=== PATIENT | female | born 1960 | race African-American/Black ===

== ENCOUNTER 2018-10-27 15:20 | Inpatient (IN) | payer MEDICAID, OTHER ==
[~2018-10-27] VITALS: Ht 167.6 cm; Wt 40.8 kg
[2018-10-27 17:50] LABS: EOSINOPHILS % 0.7 % (0.0-5.0); HEMATOCRIT. 47.1 % (36.0-48.0); HEMOGLOBIN. 15.6 g/dL (12.0-16.0); LYMPHOCYTES % 30.5 % (20.0-50.0); MEAN CORPUSCULAR VOLUME 90.9 fL (81.0-99.0); MEAN PLATELET VOLUME 10.8 fl (7.4-10.4); MONOCYTES % 7.5 % (2.0-8.0); NEUTROPHILS % 60.3 % (40.0-76.0); PLATELET 263 x1000/uL (130-400); RED BLOOD CELL COUNT 5.19 mill/uL (4.2-5.4); RED CELL DISTRIBUTION WIDTH 14.8 % (11.6-14.6)
[2018-10-27 17:54] LABS: CHLORIDE 108 mEq/L (98-107)
[2018-10-27] MEDS ORDERED: DEXTROSE 50% WATER 50ML SYRINGE IV ONE (18:56)
[2018-10-27] MEDS ORDERED: ASPIRIN 81MG TABLET PO ONE (19:30)
[2018-10-27] MEDS ORDERED: LEVOFLOXACIN 750MG PREMIX 150 ML IV NR (19:30)
[2018-10-27] MEDS ORDERED: FUROSEMIDE 40MG/4ML VIAL IVP ONE (19:30)
[2018-10-27] MEDS ORDERED: ONDANSETRON HCL 4MG/2ML INJ IV PRN (19:45)
[2018-10-27] MEDS ORDERED: IPRATROPIUM/ALBUTEROL 0.5-3(2.5)MG/3ML NEB INH PRN (19:45)
[2018-10-27] MEDS ORDERED: HYDROCODONE/ACETAMINOPHEN 5/325MG TABLET PO PRN (19:45)
[2018-10-27] MEDS ORDERED: DOCUSATE SODIUM 100MG CAPSULE PO PRN (19:45)
[2018-10-27] MEDS ORDERED: CLONIDINE 0.1MG TABLET PO PRN (19:45)
[2018-10-27] MEDS ORDERED: AZITHROMYCIN 500 MG in DEXT 5% WATER 250 ML IV SCH (19:45)
[2018-10-27] MEDS ORDERED: CEFTRIAXONE 1 G PREMIX 50 ML IV SCH (19:45)
[2018-10-27 20:42] LABS: CLARITY URINE CLOUDY (CLEAR); COLOR URINE YELLOW (YELLOW); KETONES URINE NEGATIVE (NEGATIVE); LEUKOCYTE ESTERASE URINE NEGATIVE (NEGATIVE); NITRITE URINE NEGATIVE (NEGATIVE); OCCULT BLOOD URINE NEGATIVE (NEGATIVE); PROTEIN URINE NEGATIVE (NEGATIVE); SPECIFIC GRAVITY URINE 1.011 (1.005-1.030); UROBILINOGEN URINE 0.2 E.U./dL (0.2-1.0)
[2018-10-27 20:52] LABS: HEPATITIS B SURFACE ANTIGEN NEGATIVE
[2018-10-27 20:53] LABS: *AMPHETAMINES SCREEN URINE NEGATIVE (NEGATIVE)
[2018-10-27 20:54] LABS: *BARBITURATES SCREEN URINE NEGATIVE (NEGATIVE); *BENZODIAZEPINES SCREEN URINE NEGATIVE (NEGATIVE); *COCAINE SCREEN URINE NEGATIVE (NEGATIVE); CANNABINOID URINE SCREEN NEGATIVE (NEGATIVE); METHADONE URINE SCREEN NEGATIVE (NEGATIVE); OPIATES URINE SCREEN NEGATIVE (NEGATIVE); PHENCYCLIDINE URINE SCREEN NEGATIVE (NEGATIVE)
[2018-10-27 21:22] LABS: HEPATITIS A AB IGM NEGATIVE (NEGATIVE)
[2018-10-27] MEDS: ACETAMINOPHEN 325MG TABLET PO PRN (22:54)
[2018-10-28] VITALS (8 sets, daily range): BP systolic 100–128; BP diastolic 62–94
[2018-10-28] MEDS ORDERED: MONT10TA24 PO (00:11)
[2018-10-28] MEDS ORDERED: FERR140T2 PO (00:11)
[2018-10-28] MEDS ORDERED: ATOR20TA65 PO (00:11)
[2018-10-28] MEDS ORDERED: ESTR1TAB17 PO (00:11)
[2018-10-28] MEDS ORDERED: ASPI-1159 PO (00:11)
[2018-10-28] MEDS ORDERED: FLUT1AER IH (00:14)
[2018-10-28] MEDS ORDERED: ENOXAPARIN 60MG/0.6ML SYR SUBCUT SCH ×2 (01:00→06:00)
[2018-10-28] MEDS: AZITHROMYCIN 500 MG in DEXT 5% WATER 250 ML IV SCH (01:12)
[2018-10-28] MEDS: ACETAMINOPHEN 325MG TABLET PO PRN ×2 (05:00→11:34)
[2018-10-28] MEDS: CEFTRIAXONE 1,000 MG in DEXTROSE 5% WATER 50 ML IV SCH (05:46)
[2018-10-28] MEDS ORDERED: DEXTROSE 50% WATER 50ML SYRINGE IV PRN (06:45)
[2018-10-28 06:53] LABS: CHLORIDE 107 mEq/L (98-107)
[2018-10-28 07:00] LABS: BASOPHILS % 0.9 % (0.0-2.0); EOSINOPHILS % 1.6 % (0.0-5.0); HEMATOCRIT. 43.1 % (36.0-48.0); HEMOGLOBIN. 14.2 g/dL (12.0-16.0); LYMPHOCYTES % 20.9 % (20.0-50.0); MEAN CORPUSCULAR HEMOGLOBIN 29.9 pg (28.0-32.0); MEAN CORPUSCULAR VOLUME 90.9 fL (81.0-99.0); MEAN PLATELET VOLUME 10.9 fl (7.4-10.4); MONOCYTES % 10.5 % (2.0-8.0); NEUTROPHILS % 66.1 % (40.0-76.0); PLATELET 253 x1000/uL (130-400); RED BLOOD CELL COUNT 4.74 mill/uL (4.2-5.4); RED CELL DISTRIBUTION WIDTH 14.7 % (11.6-14.6)
[2018-10-28 07:07] LABS: HDL CHOLESTEROL 66 mg/dL (40-59)
[2018-10-28 07:08] LABS: CREATINE KINASE 306 IU/L (26-192)
[2018-10-28 07:10] LABS: LDL CHOLESTEROL 56 mg/dL (5-100)
[2018-10-28 07:12] LABS: CREATINE KINASE MB FRACTION 9.8 ng/mL (0.5-3.6)
[2018-10-28] MEDS: FUROSEMIDE 40MG/4ML VIAL IV SCH (09:03)
[2018-10-28] MEDS: ASPIRIN 81MG EC TABLET PO SCH (09:03)
[2018-10-28] MEDS: INSULIN LISPRO 100 UNITS/ML SUBCUT SCH ×4 (09:06→20:40)
[2018-10-28] MEDS ORDERED: CARVEDILOL 3.125 MG TABLET PO SCH (11:00)
[2018-10-28] MEDS: BLOOD SUGAR DIAGNOSTIC STRIP TEST SCH ×3 (11:33→20:40)
[2018-10-28] MEDS: SPIRONOLACTONE 25MG TABLET PO SCH (14:50)
[2018-10-28] MEDS: APIXABAN 5 MG TABLET PO SCH (17:52)
[2018-10-28] MEDS: CARVEDILOL 6.25 MG TABLET PO SCH (20:42)
[2018-10-29] MEDS: AZITHROMYCIN 500 MG in DEXT 5% WATER 250 ML IV SCH (01:35)
[2018-10-29 04:00] VITALS: BP 114/85
[2018-10-29] MEDS: CEFTRIAXONE 1,000 MG in DEXTROSE 5% WATER 50 ML IV SCH (05:50)
[2018-10-29] MEDS: BLOOD SUGAR DIAGNOSTIC STRIP TEST SCH ×4 (06:40→21:46)
[2018-10-29 07:25] LABS: BASOPHILS % 1.2 % (0.0-2.0); EOSINOPHILS % 1.9 % (0.0-5.0); HEMATOCRIT. 41.7 % (36.0-48.0); HEMOGLOBIN. 13.8 g/dL (12.0-16.0); LYMPHOCYTES % 32.6 % (20.0-50.0); MEAN CORPUSCULAR HEMOGLOBIN 30.1 pg (28.0-32.0); MEAN PLATELET VOLUME 11.2 fl (7.4-10.4); MONOCYTES % 11.5 % (2.0-8.0); NEUTROPHILS % 52.8 % (40.0-76.0); PLATELET 237 x1000/uL (130-400); RED BLOOD CELL COUNT 4.59 mill/uL (4.2-5.4); RED CELL DISTRIBUTION WIDTH 14.4 % (11.6-14.6)
[2018-10-29] MEDS: INSULIN LISPRO 100 UNITS/ML SUBCUT SCH ×4 (07:35→21:47)
[2018-10-29 08:00] VITALS: BP 107/74
[2018-10-29] MEDS: CARVEDILOL 6.25 MG TABLET PO SCH ×2 (09:00→21:00)
[2018-10-29] MEDS: APIXABAN 5 MG TABLET PO SCH ×2 (09:36→17:04)
[2018-10-29] MEDS: ASPIRIN 81MG EC TABLET PO SCH (09:36)
[2018-10-29] MEDS: FUROSEMIDE 40MG/4ML VIAL IV SCH (09:36)
[2018-10-29] MEDS: SPIRONOLACTONE 25MG TABLET PO SCH (09:36)
[2018-10-29 12:00] VITALS: BP 112/6
[2018-10-29 16:00] VITALS: BP 101/69
[2018-10-29 20:00] VITALS: BP 104/71
[2018-10-29] MEDS ORDERED: AZITHROMYCIN 500 MG TABLET PO SCH (21:00)
[2018-10-30] VITALS: BP 107/78
[2018-10-30 04:00] VITALS: BP 97/65
[2018-10-30] MEDS: CEFTRIAXONE 1,000 MG in DEXTROSE 5% WATER 50 ML IV SCH (06:54)
[2018-10-30] MEDS: BLOOD SUGAR DIAGNOSTIC STRIP TEST SCH ×2 (07:20→11:35)
[2018-10-30] MEDS: INSULIN LISPRO 100 UNITS/ML SUBCUT SCH ×2 (07:50→12:35)
[2018-10-30 08:00] VITALS: BP 105/73
[2018-10-30] MEDS: CARVEDILOL 6.25 MG TABLET PO SCH (08:38)
[2018-10-30] MEDS: ASPIRIN 81MG EC TABLET PO SCH (08:38)
[2018-10-30] MEDS: FUROSEMIDE 40MG/4ML VIAL IV SCH (08:38)
[2018-10-30] MEDS: APIXABAN 5 MG TABLET PO SCH (08:39)
[2018-10-30] MEDS: SPIRONOLACTONE 25MG TABLET PO SCH (08:43)
[2018-10-30 12:19] VITALS: BP 95/69
[2018-10-30] MEDS ORDERED: SPIR25TA PO (14:26)
[2018-10-30] MEDS ORDERED: COR6 PO (14:26)
[2018-10-30] MEDS ORDERED: AZIT500T5 PO (14:26)
[2018-10-30] MEDS ORDERED: FURO10VI3 PO (14:26)
[2018-10-30] MEDS ORDERED: APIX5TAB PO (14:26)
[2018-10-30 15:44] VITALS: BP 110/68
[2018-11-04] MEDS ORDERED: APIXABAN 5 MG TABLET PO SCH (17:00)
== END 2018-10-30 17:58 | disposition home or self-care (01) | DRG 197 ==
LOC: ER 15:42 → 6WST 19:27 → ENRESERV 21:27
PROVIDERS: ADMIT Internal Medicine; ATTEND Internal Medicine
DX: I82.412 Acute embolism and thrombosis of left femoral vein (principal); J96.00 Acute respiratory failure, unspecified whether with hypoxia or hypercapnia; I50.23 Acute on chronic systolic (congestive) heart failure; J18.9 Pneumonia, unspecified organism; J90 Pleural effusion, not elsewhere classified; E11.22 Type 2 diabetes mellitus with diabetic chronic kidney disease; I27.20 Pulmonary hypertension, unspecified; E11.649 Type 2 diabetes mellitus with hypoglycemia without coma; J44.0 Chronic obstructive pulmonary disease with (acute) lower respiratory infection; I42.9 Cardiomyopathy, unspecified; R74.0 Nonspecific elevation of levels of transaminase and lactic acid dehydrogenase [LDH]; N18.3 Chronic kidney disease, stage 3 (moderate); E78.5 Hyperlipidemia, unspecified; M81.0 Age-related osteoporosis without current pathological fracture; Z79.4 Long term (current) use of insulin; Z82.3 Family history of stroke; Z82.49 Family history of ischemic heart disease and other diseases of the circulatory system; Z83.3 Family history of diabetes mellitus
CPT/HCPCS: 36415; 71045; 76770; 80048; 80061; 80076; 80305; 82550; 82553; 82962; 83036; 83735; 83880; 84443; 84484; 86705; 86709; 86803; 87340; 93005; 93306; 93970; 96365; 96375; 99285; J0456; J0696; J1650; J1815; J1940; J1956; J7040; J7060

== ENCOUNTER 2019-06-23 13:20 | Emergency (ER) | payer MEDICAID ==
[~2019-06-23] VITALS: Ht 167.6 cm; Wt 41.0 kg
[~2019-06-23 13:20] MED LIST: APIX5TAB PO; ASPI-1393 PO; ATOR20TA65 PO; AZIT500T5 PO; COR6 PO; ESTR1TAB17 PO; FERR140T2 PO; FLUT1AER IH; FURO10VI3 PO; MONT10TA24 PO; SPIR25TA PO
[2019-06-23] MEDS ORDERED: SODIUM CHLORIDE 0.9% 1,000 ML IV ONE (14:46)
[2019-06-23 15:20] LABS: BASOPHILS % 1.2 % (0.0-2.0); EOSINOPHILS % 3.9 % (0.0-5.0); HEMATOCRIT. 34.1 % (36.0-48.0); HEMOGLOBIN. 11.5 g/dL (12.0-16.0); MEAN CORPUSCULAR HEMOGLOBIN 30.7 pg (28.0-32.0); MEAN CORPUSCULAR VOLUME 91.2 fL (81.0-99.0); MEAN PLATELET VOLUME 8.7 fl (7.4-10.4); MONOCYTES % 8.5 % (2.0-8.0); NEUTROPHILS % 65.4 % (40.0-76.0); PLATELET 259 x1000/uL (130-400); RED BLOOD CELL COUNT 3.74 mill/uL (4.2-5.4); RED CELL DISTRIBUTION WIDTH 13.4 % (11.6-14.6)
[2019-06-23 15:23] LABS: CHLORIDE 106 mEq/L (98-107)
[2019-06-23 15:28] LABS: CLARITY URINE CLEAR (CLEAR); COLOR URINE YELLOW (YELLOW); KETONES URINE NEGATIVE (NEGATIVE); LEUKOCYTE ESTERASE URINE NEGATIVE (NEGATIVE); NITRITE URINE NEGATIVE (NEGATIVE); OCCULT BLOOD URINE NEGATIVE (NEGATIVE); PH URINE 5.5 (4.5-8.0); PROTEIN URINE NEGATIVE (NEGATIVE); SPECIFIC GRAVITY URINE 1.016 (1.005-1.030); UROBILINOGEN URINE 0.2 E.U./dL (0.2-1.0)
[2019-06-23] MEDS ORDERED: SODIUM POLYSTYRENE SULFONATE 15 G/60 ML BOT PO ONE (15:30)
[2019-06-23] MEDS ORDERED: ALBUTEROL (0.083%) 2.5MG/3ML NEB HHN ONE (15:30)
[2019-06-23] MEDS ORDERED: SODIUM BICARBONATE 8.4% 1 MEQ/ML 50ML SYR IV ONE (15:30)
[2019-06-23 18:32] VITALS: BP 132/73
== END 2019-06-23 18:47 | disposition home or self-care (01) ==
LOC: ER 13:45
DX: E87.5 Hyperkalemia (principal); N28.9 Disorder of kidney and ureter, unspecified; I50.9 Heart failure, unspecified; D64.9 Anemia, unspecified; E11.9 Type 2 diabetes mellitus without complications; Z79.82 Long term (current) use of aspirin; Z87.01 Personal history of pneumonia (recurrent); Z86.718 Personal history of other venous thrombosis and embolism
CPT/HCPCS: 36415; 71045; 80048; 80053; 81003; 85025; 93005; 94644; 96374; 99285; J3490; J7030; J7611; Z7610